=== PATIENT | female | born 2005 | race Caucasian/White ===

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

== ENCOUNTER 2025-01-24 05:07 | Inpatient (IN) | payer OTHER, SELFPAY ==
[2025-01-24] VITALS (53 sets, daily range): BP systolic 97–171; BP diastolic 52–98; PULSE 73–148; TEMP 36.6–36.9
--- OUTSIDE RECORDS SUMMARY | 2025-01-24 05:16 | XMS_ITS | CCD ---
Author Organization [facility] Care Team Providers Care Janitorial Maintenance Worker Name Role Phone MARKER, DR DISLA Attending Unavailable MARKER, DR DISLA Consulting Unavailable MARKER, DR DISLA Admitting Unavailable EHSANANNABELLA Consulting Unavailable Unavailable Primary Care Provider Unavailabl e Miko, Lolita Attending Unavailable Miko, Lolita Admitting Unavailable MIKO, LOLITA Attending Unavailable YASMIN, MARY Attending Unavailable MIKO, LOLITA Attending Unavailable YASMIN, MARY Attending Unavailable MIKO, LOLITA Attending Unavailable MIKO, LOLITA Attending Unavailable MIKO, LOLITA Attending Unavailable YASMIN, MARY Attending Unavailable AMADEO, LAURIE Attending Unavailable AMADEO, LAURIE Attending Unavailable MIKO, LOLITA Attending Unavailable MIKO, LOLITA Attending Unavailable Problems Active Problems Problem Classification Problem Date Documented Da te Episodic/Chronic E Codes: Other specified and classifiable (1 source) Caught, crushed, jammed, or pinched between moving objects, initial encounter; Translations: [CAUGHT CRUSH/PINCH BTWN MOV OBJ INT] Onset: 02-05-2021 Episodic Menstrual disorders (1 source) Missed period; Translations: [Irregular menstruation, unspecified] 07-01-2024 Chronic Other complications of (2 sources) Excessive growth affecting management of mother; Translations: [Maternal care for excessive growth, unspecified trimester, not applicable or unspecified] 12-07-2024 Episodic Other connective tissue disease (3 sources) Pain in right forearm; Translations: [PAIN IN RIGHT FOREARM] Onset: 01-31-2021 Episodic Other and delivery including normal (20 sources) ; Translations: [Encounter for supervision of normal , unspecified, unspecified trimester] Onset: 08-29-2024 07-01-2024 Episodic Residual codes; unclassified (1 source) Gestation period, 10 weeks; Translations: [10 weeks gestation of ] 07-01-2024 Episodic Residual codes; unclassified (2 sources) Gestation period, 14 weeks; Translations: [14 weeks gestation of ] 08-01-2024 Episodic Residual codes; unclassified (2 sources) Gestation period, 22 weeks; Translations: [22 weeks gestation of ] 09-27-2024 Episodic Residual codes; unclassified (2 sources) Gestation period, 26 weeks; Translations: [26 weeks gestation of ] 10-25-2024 Episodic Residual codes; unclassified (2 sources) Gestation period, 28 weeks; Translations: [28 weeks gestation of ] 11-08-2024 Episodic Residual codes; unclassified (2 sources) Gestation period, 32 weeks; Translations: [32 weeks gestation of ] 12-07-2024 Episodic Residual codes; unclassified (4 sources) Gestation period, 35 weeks; Translations: [35 weeks gestation of ] 12-21-2024 Episodic Residual codes; unclassified (2 sources) Gestation period, 36 weeks; Translations: [36 weeks gestation of ] 01-04-2025 Episodic Residual codes; unclassified (2 sources) Gestation period, 37 weeks; Translations: [37 weeks gestation of ] 01-11-2025 Episodic Residual codes; unclassified (2 sources) Gestation period, 38 weeks; Translations: [38 weeks gestation of ] 01-17-2025 Episodic Superficial injury; contusion (2 sources) Contusion of right hand, initial encounter; Translations: [Contusion of right wrist, initial encounter] Onset: 02-05-2021 Episodic Unclassified (20 sources) OB Reminders Onset: 07-01-2024 07-01-2024 Viral infection (1 source) Disease caused by 2019-nCoV; Translations: [COVID-19] 04-26-2024 Episodic Past or Other Problems Problem Classification Problem Date Documented Da te Episodic/Chronic Other screening for suspected conditions (not mental disorders or infectious disease) (20 sources) Patient encounter status; Translations: [Encounter for other specified screening] Onset: 08-29-2024 08-29-2024 Episodic Residual codes; unclassified (20 sources) Gestation period, 18 weeks; Translations: [18 weeks gestation of ] Onset: 08-29-2024 08-29-2024 Episodic Results Test Name Value Interpretation Reference Range Facility Urinalysis macro (dipstick) panel (U)on 01-17-2025 Bilirubin, UA Negative Negative - 4(70) +++ mg/dL [facility] Blood, UA Positive Negative - 50 Shimon/mcL [facility] Comment on above: trace-intact Clarity, UA Clear [facility] Color, UA Yellow [facility] Glucose, UA Negative Negative - 2000(110) ++++ mg/dL [facility] Interpretation and review of laboratory results Abnormal [facility] Ketones, UA Negative Negative - 160(16) ++++ mg/dL [facility] Leukocytes, UA Moderate Negative - 500+++ Mari/mcL [facility] Nitrite, UA Negative Negative - Positive [facility] pH, UA 6.5 5 - 9 [facility] e Protein, UA Negative Negative - 2000(20) ++++ mg/dL [facility] Spec Grav, UA 1.02 1 - 1.03 [facility] Urobilinogen, UA 0.2 0.2 - 12 mg/dL [facility] US OB FOLLOW UP TRANSABDOMIN AL APPROACHon 01-04-2025 US OB FOLLOW UP TRANSABDOMINAL APPROACH EXAM: US OB FOLLOW UP TRANSABDOMINAL APPROACH HISTORY: Large for gestational age. JEANNIE 01/27/2025. COMPARISON: U/S OB 09/13/2024. TECHNIQUE: Two-dimensional transabdominal grayscale ultrasound imaging of the pelvis was performed. FINDINGS: Gestation: Single Presentation: Cephalic Cardiac Activity: 131 beats per minute Placental Location: Anterior with no sonographic abnormalities identified. Distance from Placental Tip to Cervix: Not visualized Cervical Length: Obscured by overlying head Amniotic Fluid MVP: 6.2 cm MEASUREMENTS: BPD: 9.0 cm EGA: 36 weeks 3 days HC: 33.4 cm EGA: 38 weeks 1 days AC: 33.8 cm EGA: 37 weeks 5 days FL: 7.1 cm EGA: 36 weeks 1 days HC/AC Ratio: 0.99 (0.92-1.05) Gestational age by today's ultrasound is 37 weeks 1 days (+/- 18 days gestation). Estimated Weight: 3154 grams, +/- 473 grams ( 6 lb 15 oz). Weight Percentile for gestational age: 69 % IMPRESSION: 1. Single, live intrauterine gestation 36 weeks, 5 days by LMP. Today's ultrasound measurements correlate with a gestational age of 37 weeks 1 days. Interpreted by: Electronically signed by FERNANDO ORDONEZ II, MD, PHD at 08-Jan-2025 08:52:54 PM [facility] Normal Not Available Comment on above: Order Comment: US OB SCAN FOR GROWTH Estimated Date of Delivery: 01/27/25 Gestational Age as of 12/07/2024: 32w5d Urinalysis macro (dipstick) panel (U)on 01-04-2025 Bilirubin, UA Negative Negative - 4(70) +++ mg/dL [facility] Blood, UA Positive Negative - 50 Shimon/mcL [facility] Comment on above: trace-intact Clarity, UA Clear [facility] Color, UA Yellow [facility] Glucose, UA Negative Negative - 1999(110) ++++ mg/dL [facility] Interpretation and review of laboratory results Abnormal [facility] Ketones, UA Negative Negative - 160(16) ++++ mg/dL [facility] Leukocytes, UA Positive Negative - 500+++ Mari/mcL [facility] Comment on above: large Nitrite, UA Negative Negative - Positive [facility] pH, UA 6.5 5 - 9 [facility] Protein, UA Trace Negative - 1999(20) ++++ mg/dL [facility] Spec Grav, UA 1.02 1 - 1.03 [facility] Urobilinogen, UA 0.2 0.2 - 12 mg/dL [facility] STREP GP B CULTURE+RFLXon STREP GP B CULTURE+RFLX SEE SCANNED REPORT [facility] Urinalysis macro (dipstick) panel (U)on 12-28-2024 Bilirubin, UA Negative Negative - 4(70) +++ mg/dL [facility] Blood, UA Positive Negative - 50 Shimon/mcL [facility] Healthcare Comment on above: Trace-lysed Clarity, UA Clear [facility] Color, UA Yellow [facility] Glucose, UA Negative Negative - 1999(110) ++++ mg/dL [facility] Interpretation and review of laboratory results Abnormal [facility] Ketones, UA Negative Negative - 160(16) ++++ mg/dL [facility] Leukocytes, UA Trace Negative - 500+++ Mari/mcL [facility] Healthcare Nitrite, UA Negative Negative - Positive [facility] pH, UA 5.5 5 - 9 [facility] Protein, UA Positive Negative - 1999(20) ++++ mg/dL [facility] Comment on above: 30mg/dL Spec Grav, UA 1.03 1 - 1.03 [facility] care Urobilinogen, UA 0.2 0.2 - 12 mg/dL [facility] Urinalysis macro (dipstick) panel (U)on 12-21-2024 Bilirubin, UA Negative Negative - 4(70) +++ mg/dL [facility] Blood, UA Positive Negative - 50 Shimon/mcL [facility] Clarity, UA Clear [facility] Color, UA Yellow [facility] Glucose, UA Negative Negative - 1999(110) ++++ mg/dL [facility] Interpretation and review of laboratory results Abnormal [facility] Ketones, UA Negative Negative - 160(16) ++++ mg/dL [facility] Leukocytes, UA Positive Negative - 500+++ Mari/mcL [facility] Nitrite, UA Negative Negative - Positive [facility] pH, UA 6.5 5 - 9 [facility] Protein, UA Trace Negative - 1999(20) ++++ mg/dL [facility] Spec Grav, UA 1.02 1 - 1.03 [facility] Urobilinogen, UA 0.2 0.2 - 12 mg/dL [facility] OB GROWTHon 12-07-[address] [address] Ultrasound Report Signed Patient: GOOD FREEMAN MR#: [id number] : 2005 Acct:[id number] Age/Sex: 19 / F ADM Date: 12/07/24 Loc: US Attending Dr: Mary Hoffman Ordering Physician: Mary Hoffman Date of Service: 12/07/24 Procedure(s): US OB growth Accession Number(s): [id number] cc: Mary Hoffman; Physician,Non-Staff M.DLisset The [address] [address] Patient Name: GOOD FREEMAN MRN: [facility]:[id number] date: 2005 Sex: F Assigned Patient Location: US Current Patient Location: Accession/Order Number: [id number] Exam Date: 12/07/2024 11:52 Report Date: 12/07/2024 11:57 At the request of: MARY HOFFMAN Procedure: US OB growth OB ULTRASOUND GROWTH COMPARISON: 2024 CLINICAL DATA: size and consistent with dates There is a single live intrauterine gestation in cephalic presentation. There is cardiac and somatic activity with heart rate of 129 beats per minutes. The amniotic fluid index measures 19.2 cm which is an upper normal range. The placenta is anterior. The following measurements were obtained: Biparietal diameter 8.1 cm 32 weeks 3 days 33% Head circumference 30.0 cm 33 weeks 1 day 23% Abdominal circumference 29.5 cm 32 weeks 4 days 44% Femur length 5.9 cm 30 weeks 5 days 4% The composite ultrasound age based these measurements is 32 weeks 2 days +/- 2 weeks 2 days. This correlates with dates based on the prior. The estimated weight is 4 lbs. 3 oz. +/- 10 ounces. US/US OB growth IMPRESSION: SINGLE LIVE INTRAUTERINE GESTATION WITH ULTRASOUND AGE OF 32 WEEKS 2 DAYS. APPROPRIATE INTERVAL GROWTH. Impression dictated by: Kacey Jeff M.D.12/07/2024 11:57 AM Dictation Location: [place] [address] Electronically authenticated by: [id number] Y Date: 12/07/2024 11:57 Dictated By: Kacey Jeff M.D. Signed By: 12/07/24 1159 DD/ 1157 TD/TT: Supervisor Hospitality House: [facility] Radiology, Radiologist, MD - 12/07/2024 [place] [address] Ultrasound Report Signed Patient: GOOD FREEMAN MR#: [id number] : 2005 Acct:[id number] Age/Sex: 19 / F ADM Date: 12/07/24 Loc: US Attending Dr: Mary Hoffman Ordering Physician: Mary Hoffman Date of Service: 12/07/24 Procedure(s): US OB growth Accession Number(s): [id number] cc: Mary Hoffman; Physician,Non-Staff Negar The [place] [id number] Patient Name: GOOD FREEMAN MRN: [id number] date: 2005 Sex: F Assigned Patient Location: US Current Patient Location: US Accession/Order Number: [id number] Exam Date: 12/07/2024 11:52 Report Date: 12/07/2024 11:57 At the request of: MARY HOFFMAN Procedure: US OB growth OB ULTRASOUND GROWTH COMPARISON: 2024 CLINICAL DATA: size and consistent with dates There is a single live intrauterine gestation in cephalic presentation. There is cardiac and somatic activity with heart rate of 129 beats per minutes. The amniotic fluid index measures 19.2 cm which is an upper normal range. The placenta is anterior. The following measurements were obtained: Biparietal diameter 8.1 cm 32 weeks 3 days 33% Head circumference 30.0 cm 33 weeks 1 day 23% Abdominal circumference 29.5 cm 32 weeks 4 days 44% Femur length 5.9 cm 30 weeks 5 days 4% The composite ultrasound age based these measurements is 32 weeks 2 days +/- 2 weeks 2 days. This correlates with dates based on the prior. The estimated weight is 4 lbs. 3 oz. +/- 10 ounces. US/US OB growth IMPRESSION: SINGLE LIVE INTRAUTERINE GESTATION WITH ULTRASOUND AGE OF 32 WEEKS 2 DAYS. APPROPRIATE INTERVAL GROWTH. Impression dictated by: Kacey Jeff M.D.12/07/2024 11:57 AM Dictation Location: [place] [address] Electronically authenticated by: [id number] Y Date: 12/07/2024 11:57 Dictated By: Kacey Jeff M.D. Signed By: 12/07/24 1159 DD/ 1157 TD/TT: Supervisor Hospitality House: [facility] Radiology Study observation (narrative) [facility] US OB GROWTHOrdered By: Jose Roberto ologvenita Radiology on 12-07-2024 [facility] [employer] Work Phone: Urinalysis macro (dipstick) panel (U)on 12-07-2024 Bilirubin, UA Negative Negative - 4(70) +++ mg/dL [facility] Blood, UA Positive Negative - 50 Shimon/mcL [facility] Comment on above: trace-intact Clarity, UA Clear [facility] Color, UA Yellow [facility] Glucose, UA Negative Negative - 1999(110) ++++ mg/dL [facility] Interpretation and review of laboratory results Abnormal [facility] Ketones, UA Negative Negative - 160(16) ++++ mg/dL [facility] Leukocytes, UA Positive Negative - 500+++ Mari/mcL [facility] Comment on above: small Nitrite, UA Negative Negative - Positive [facility] pH, UA 6.5 5 - 9 [facility] Protein, UA Trace Negative - 1999(20) ++++ mg/dL [facility] Spec Grav, UA 1.025 1 - 1.03 [facility] care Urobilinogen, UA 0.2 0.2 - 12 mg/dL [facility] Urinalysis macro (dipstick) panel (U)on 10-25-2024 Bilirubin, UA Negative Negative - 4(70) +++ mg/dL [facility] Blood, UA Negative Negative - 50 Shimon/mcL [facility] Clarity, UA Clear [facility] Color, UA Yellow [facility] Glucose, UA Negative Negative - 1999(110) ++++ mg/dL [facility] Interpretation and review of laboratory results Abnormal [facility] Ketones, UA Negative Negative - 160(16) ++++ mg/dL [facility] Leukocytes, UA Trace Negative - 500+++ Mari/mcL [facility] Nitrite, UA Negative Negative - Positive [facility] pH, UA 7 5 - 9 [facility] Protein, UA Negative Negative - 1999(20) ++++ mg/dL [facility] Spec Grav, UA 1.025 1 - 1.03 [facility] Urobilinogen, UA 0.2 0.2 - 12 mg/dL [facility] AFP, SERUM, OPEN SPINA BIFID Aon 10-22-2024 AFP MOM 2.29 . [facility] AFP VALUE 105.1 ng/mL . [facility] re COMMENT: Comment . [facility] Comment on above: Nallely Dutta , Ph.D., [facility] Director References: Available Upon Request. Multiples Of Median Cutoffs For AFP Elevations Zamora 2.5 Black 2.8 IDD 2.0 Twins 4.5 Abbreviation Definitions IDD - Insulin Dep Diabetes OSBR - Open Spina Bifida Risk For further inquiries contact [facility] at [phone]. This test was developed and its performance characteristics determined by [employer]. It has not been cleared or approved by the Food and Drug Administration. Performed at: [facility] [address] [place], [place] [id number] Mutual Fund Analyst: Adriana Edwards [facility]ly [facility], Phone: [phone] GEST. AGE ON COLLECTION DATE 18.4 . weeks [facility] GESTAT. AGE BASED ON LMP . [facility] Comment on above: Recalculations are n ot recommended when gestational dating by LMP and ultrasound are within 10 days. INSULIN DEP DIABETES No . [facility] INTERPRETATION Comment . [facility] hcare Comment on above: Interpretation: Scre en Negative [...] Customer Services to discuss available options. [employer] recommends amniocentesis be offered to women age 35 and older. [age] [facility] MULTIPLE GESTATION No . [facility] OSBR RISK 1 [place] 435 . [facility] . [facility] [employer] RESULTS Report . [facility] [employer] TEST RESULTS: Negative . [facility] care WEIGHT 147 . lbs [facility] N N LMP [id number] 3 18 N 1 Y 147 N N N N N Other Race [facility] ALL CBC WITH AUTO DIFFon BASOPHILS ABSOLUTE AUTO 0 [facility] Basophils/100 WBC (Bld) 0.2 % 0.2 - 2.0 % [facility] Eosinophils/100 WBC (Bld) 0.6 % Low 0.9 - 7.0 % [facility] Erythrocyte distribution width (RBC) [Ratio] 13.4 % 11.0 - 15.0 % [facility] Hematocrit (Bld) [Volume fraction] 37.1 % 36.0 - 48.0 % [facility] Hemoglobin (Bld) [Mass/Vol] 12.7 g/dL 12.0 - 16.0 g/dL [facility] IMMATURE GRANULOCYTES ABS AUTO 0.13 High [facility] Immature granulocytes/100 WBC (Bld) 1.6 % High 0.0 - 0.5 % [facility] Interpretation and review of laboratory results Abnormal [facility] LYMPHOCYTES ABSOLUTE AUTO 2.5 [facility] Lymphocytes/100 WBC (Bld) 29.5 % 20.5 - 60.0 % [facility] MCH (RBC) [Entitic mass] 31.9 pg 26.7 - 34.0 pg [facility] MCHC (RBC) [Mass/Vol] 34.2 g/dL 29.9 - 35.2 g/dL [facility] MCV (RBC) [Entitic vol] 93.2 fL 81.0 - 99.0 fL [facility] MONOCYTES ABSOLUTE AUTO 0.5 [facility] Monocytes/100 WBC (Bld) 5.9 % 1.7 - 12.0 % [facility] NEUTROPHILS ABSOLUTE AUTO 5.2 [facility] Neutrophils/100 WBC (Bld) 62.2 % 43.0 - 75.0 % [facility] Platelet mean volume (Bld) [Entitic vol] 10 fL 9.5 - 13.5 fL [facility] are [facility] EO # 0.1 [facility] e TB PLT 203 [facility] e TB RBC 3.98 Low [facility] WBC 8.3 [facility] e Urinalysis macro (dipstick) panel (U)on 09-27-2024 Bilirubin, UA Negative Negative - 4(70) +++ mg/dL [facility] Blood, UA Negative Negative - 50 Shimon/mcL [facility] Clarity, UA Clear [facility] re Color, UA Yellow [facility] e Glucose, UA Negative Negative - 2000(110) ++++ mg/dL [facility] Interpretation and review of laboratory results Abnormal [facility] Ketones, UA Negative Negative - 160(16) ++++ mg/dL [facility] Leukocytes, UA Trace Negative - 500+++ Mari/mcL [facility] Nitrite, UA Negative Negative - Positive [facility] pH, UA 6 5 - 9 [facility] Protein, UA Negative Negative - 2000(20) ++++ mg/dL [facility] Spec Grav, UA 1.025 1 - 1.03 [facility] Urobilinogen, UA 0.2 0.2 - 12 mg/dL [facility] US OB 14+ WEEKS ANATOMY [...] RECURRENT VAGINITIS (HTRX)on 09-01-2024 [facility]AE 0 [facility] ATOPOBIUM VAGINAE Not detected [facility] Healthcare BVAB 2,3 (BACTERIAL VAGINOSIS ASSOCIATED BACTERIA 2, 3); MOBILUNCUS SPP 0 [facility] BVAB 2,3 (BACTERIAL VAGINOSIS ASSOCIATED BACTERIA 2, 3); MOBILUNCUS SPP Not detected [facility] RICK ALBICANS, PARAPSILOSIS, TROPICALIS 0 [facility] RICK ALBICANS, PARAPSILOSIS, TROPICALIS Not detected [facility] Healthcare RICK GLABRATA 0 [facility] Hea lthcare RICK GLABRATA Not detected [facility] RICK KRUSEI 0 [facility] RICK KRUSEI Not detected [facility] CHLAMYDIA TRACHOMATIS 0 [facility] CHLAMYDIA TRACHOMATIS Not detected [facility] GARDNERELLA VAGINALIS 0 [facility] GARDNERELLA VAGINALIS Not detected [facility] MEGASPHAERA (TYPES 1, 2) 0 [facility] MEGASPHAERA (TYPES 1, 2) Not detected [facility] MYCOPLASMA GENITALIUM 0 [facility] MYCOPLASMA GENITALIUM Not detected [facility] NEISSERIA GONORRHOEAE 0 [facility] NEISSERIA GONORRHOEAE Not detected [facility] TRICHOMONAS VAGINALIS 0 [facility] TRICHOMONAS VAGINALIS Not detected [facility] ALL CBC WITH AUTO DIFFon BASOPHILS ABSOLUTE AUTO 0 [facility] Basophils/100 WBC (Bld) 0.4 % 0.2 - 2.0 % [facility] Eosinophils/100 WBC (Bld) 0.9 % 0.9 - 7.0 % [facility] Erythrocyte distribution width (RBC) [Ratio] 13.1 % 11.0 - 15.0 % [facility] Hematocrit (Bld) [Volume fraction] 39.3 % 36.0 - 48.0 % [facility] Hemoglobin (Bld) [Mass/Vol] 13.3 g/dL 12.0 - 16.0 g/dL [facility] IMMATURE GRANULOCYTES ABS AUTO 0.1 High [facility] Immature granulocytes/100 WBC (Bld) 1.2 % High 0.0 - 0.5 % [facility] Interpretation and review of laboratory results Abnormal [facility] LYMPHOCYTES ABSOLUTE AUTO 2.6 [facility] Lymphocytes/100 WBC (Bld) 31.8 % 20.5 - 60.0 % [facility] MCH (RBC) [Entitic mass] 30.6 pg 26.7 - 34.0 pg [facility] MCHC (RBC) [Mass/Vol] 33.8 g/dL 29.9 - 35.2 g/dL [facility] MCV (RBC) [Entitic vol] 90.6 fL 81.0 - 99.0 fL [facility] MONOCYTES ABSOLUTE AUTO 0.4 [facility] Monocytes/100 WBC (Bld) 5.5 % 1.7 - 12.0 % [facility] NEUTROPHILS ABSOLUTE AUTO 4.8 [facility] Neutrophils/100 WBC (Bld) 60.2 % 43.0 - 75.0 % [facility] Platelet mean volume (Bld) [Entitic vol] [...] (U) No Growth 2 Days PERFORMED BY: [place] [address] PATHOLOGIST [employer] JOHNATHAN AGARWAL M.D. Normal [facility] Comment on above: Performed By: #### C UU #### [address] Urinalysis macro (dipstick) panel (U)on 08-01-2024 Bilirubin, UA Negative Negative - 4(70) +++ mg/dL [facility] Blood, UA Negative Negative - 50 Shimon/mcL [facility] Clarity, UA Clear [facility] Color, UA Yellow [facility] Glucose, UA Negative Negative - 2000(110) ++++ mg/dL [facility] Interpretation and review of laboratory results Normal [facility] Ketones, UA Negative Negative - 160(16) ++++ mg/dL [facility] Leukocytes, UA Negative Negative - 500+++ Mari/mcL [facility] Nitrite, UA Negative Negative - Positive [facility] pH, UA 6.5 5 - 9 [facility] Protein, UA Negative Negative - 1999(20) ++++ mg/dL [facility] Spec Grav, UA 1.025 1 - 1.03 [facility] Urobilinogen, UA 0.2 0.2 - 12 mg/dL [facility] HCG ( test) Ql (U)o n 07-01-2024 Interpretation and review of laboratory results Abnormal [facility] Preg Test, Ur Positive [facility] Urinalysis macro (dipstick) panel (U)on 07-01-2024 Bilirubin, UA Negative Negative - 4(70) +++ mg/dL [facility] Blood, UA Negative Negative - 50 Shimon/mcL [facility] Clarity, UA Clear [facility] re Color, UA Yellow [facility] e Glucose, UA Negative Negative - 1999(110) ++++ mg/dL [facility] Interpretation and review of laboratory results Normal [facility] Ketones, UA Negative Negative - 160(16) ++++ mg/dL [facility] Leukocytes, UA Negative Negative - 500+++ Mari/mcL [facility] Nitrite, UA Negative Negative - Positive [facility] pH, UA 6 5 - 9 [facility] Protein, UA Negative Negative - 1999(20) ++++ mg/dL [facility] Spec Grav, UA 1.025 1 - 1.03 [facility] Urobilinogen, UA 0.2 0.2 - 12 mg/dL [facility] XR WRIST RT [...] by: ANNABELLA MOSER Date: 2021-01-31 20:05 Normal [facility] Vital Signs Date Time Vital Sign Value Performing Clinician Facility 01-17-2025 11:51-0400 Body weight 94.26 kg Lolita Miko DO Work Phone: [facility] 01-17-2025 11:51-0400 Diastolic blood pressure 82 mm[Hg] Lolita Miko DO Work Phone: [facility] 01-17-2025 11:51-0400 Systolic blood pressure 130 mm[Hg] Lolita Miko DO Work Phone: [facility] 01-11-2025 11:30-0400 Body weight 92.08 kg Lolita Miko DO Work Phone: [facility] 01-11-2025 11:30-0400 Diastolic blood pressure 76 mm[Hg] Lolita Miko DO Work Phone: [facility] 01-11-2025 11:30-0400 Systolic blood pressure 102 mm[Hg] Lolita Miko DO Work Phone: [facility] 01-04-2025 09:02-0400 Body weight 91.81 kg Laurie Amadeo [employer] Work Phone: [facility] 01-04-2025 09:02-0400 Diastolic blood pressure 70 mm[Hg] Laurie Amadeo [employer] Work Phone: [facility] 01-04-2025 09:02-0400 Systolic blood pressure 110 mm[Hg] Laurie Amadeo [employer] Work Phone: [facility] 12-28-2024 09:03-0400 Body weight 89.81 kg Laurie Amadeo [employer] Work Phone: [facility] 12-28-2024 09:03-0400 Diastolic blood pressure 82 mm[Hg] Laurie Amadeo [employer] Work Phone: [facility] 12-28-2024 09:03-0400 Systolic blood pressure 124 mm[Hg] Laurie Amadeo [employer] Work Phone: [facility] 12-21-2024 11:05-0400 Body weight 53.52 kg Lolita Miko DO Work Phone: [facility] 12-21-2024 11:05-0400 Diastolic blood pressure 74 mm[Hg] Lolita Miko DO Work Phone: [facility] 12-21-2024 11:05-0400 Systolic blood pressure 118 mm[Hg] Lolita Miko DO Work Phone: [facility] 12-07-2024 11:37-0400 Body weight 86.36 kg Lolita Miko DO Work Phone: [facility] 12-07-2024 11:37-0400 Diastolic blood pressure 72 mm[Hg] Lolita Miko DO Work Phone: [facility] 12-07-2024 11:37-0400 Systolic blood pressure 110 mm[Hg] Lolita Miko DO Work Phone: [facility] 11-08-2024 11:51-0500 Body weight 81.7 kg Lolita Miko DO Work Phone: [facility] 11-08-2024 11:51-0500 Diastolic blood pressure 74 mm[Hg] Lolita Miko DO Work Phone: [facility] 11-08-2024 11:51-0500 Systolic blood pressure 118 mm[Hg] Lolita Miko DO Work Phone: [facility] 10-25-2024 11:59-0500 Body weight 79.38 kg Mary BRIONES Work Phone: [facility] 10-25-2024 11:59-0500 Diastolic blood pressure 70 mm[Hg] Mary BRIONES Work Phone: [facility] 10-25-2024 11:59-0500 Systolic blood pressure 112 mm[Hg] Mary BRIONES Work Phone: [facility] 09-27-2024 09:17-0500 Body weight 73.48 kg Lolita Miko DO Work Phone: [facility] 09-27-2024 09:17-0500 Diastolic blood pressure 62 mm[Hg] Lolita Miko DO Work Phone: [facility] 09-27-2024 09:17-0500 Systolic blood pressure 112 mm[Hg] Lolita Miko DO Work Phone: [facility] 08-29-2024 11:11-0500 Body weight 66.45 kg Mary Yasmin BRIONES Work Phone: [facility] 08-29-2024 11:11-0500 Diastolic blood pressure 62 mm[Hg] Mray BRIONES Work Phone: [facility] 08-29-2024 11:11-0500 Systolic blood pressure 106 mm[Hg] Mary Hoffman PA Work Phone: [facility] 08-01-2024 10:06-0500 Body weight 62.05 kg Lolita Miko DO Work Phone: [facility] 08-01-2024 10:06-0500 Diastolic blood pressure 62 mm[Hg] Lolita Miko DO Work Phone: [facility] 08-01-2024 10:06-0500 Systolic blood pressure 110 mm[Hg] Lolita Miko DO Work Phone: [facility] 07-01-2024 11:05-0400 Body weight 56.25 kg [facility] Nurse [facility] 04-26-2024 15:52-0400 Body height 162.56 cm [facility] 04-26-2024 15:52-0400 Body mass index (BMI) [Percentile] Per age and sex 38.1 % [facility] 04-26-2024 15:52-0400 Body mass index (BMI) [Ratio] 20.6 kg/m2 [facility] 04-26-2024 15:52-0400 Body temperature 98.9 [degF] [facility] 04-26-2024 15:52-0400 Body weight 54.6 kg [facility] 04-26-2024 15:52-0400 Diastolic blood pressure 85 mm[Hg] [facility] 04-26-2024 15:52-0400 Heart rate 77 /min [facility] 04-26-2024 15:52-0400 Respiratory rate 18 /min [facility] 04-26-2024 15:52-0400 SaO2% (BldA) [Mass fraction] 99 % [facility] 04-26-2024 15:52-0400 Systolic blood pressure 122 mm[Hg] [facility] Encounters Encounter Date Encounter Type Care Provider Facility Start: 01-17-2025 End: 01-17-2025 Bamboo flowsheet Lolita Miko DO Work Phone: [facility] Start: 01-17-2025 End: 01-17-2025 Bamboo flowsheet Lolita Miko DO Work Phone: [facility] Start: 01-17-2025 End: 01-17-2025 ambulatory LOLITA MIKO Not Available Start: 01-17-2025 End: 01-17-2025 flow sheet Lolita Miko DO Work Phone: [facility] Comment on above: 38 weeks gestation o f ; Third trimester Start: 01-11-2025 End: 01-11-2025 Bamboo flowsheet Lolita Miko DO Work Phone: [facility] Start: 01-11-2025 End: 01-11-2025 Bamboo flowsheet Loliat Miko DO Work Phone: [facility] Start: 01-11-2025 End: 01-11-2025 ambulatory LOLITA MIKO Not Available Start: 01-11-2025 End: 01-11-2025 flow sheet Lolita Miko DO Work Phone: [facility] Comment on above: Third trimester preg amando; 37 weeks gestation of Start: 01-04-2025 End: 01-04-2025 flow sheet Laurie Amadeo [employer] Work Phone: [facility] Comment on above: Third trimester preg amando; 36 weeks gestation of Start: 01-04-2025 End: 01-04-2025 ambulatory LAURIE AMADEO Not Available Start: 12-28-2024 End: 12-28-2024 Bamboo flowsheet Laurie Childs [employer] Work Phone: [facility] Start: 12-28-2024 End: 01-03-2025 Bamboo flowsheet Laurie Childs [employer] Work Phone: [facility] Start: 12-28-2024 End: 01-03-2025 Clinisync Result Encounter Laurie Childs [employer] Work Phone: [facility] Unsolicited Start: 12-28-2024 End: 12-28-2024 ambulatory LAURIE CHILDS Not Available Start: 12-28-2024 End: 12-28-2024 flow sheet Laurie Childs [employer] Work Phone: [facility] Comment on above: Third trimester preg amando; 35 weeks gestation of Start: 12-21-2024 End: 12-21-2024 Bamboo flowsheet Lolita Miko DO Work Phone: [facility] Start: 12-21-2024 End: 12-21-2024 Bamboo flowsheet Lolita Miko DO Work Phone: [facility] Start: 12-21-2024 End: 12-21-2024 flow sheet Lolita Miko DO Work Phone: [facility] Comment on above: Third trimester preg amando; 35 weeks gestation of Start: 12-21-2024 End: 12-21-2024 ambulatory LOLITA MIKO Not Available Start: 12-07-2024 End: 12-07-2024 Bamboo flowsheet Lolita Miko DO Work Phone: [facility] Start: 12-07-2024 End: 12-07-2024 Bamboo flowsheet Lolita Miko DO Work Phone: [facility] Start: 12-07-2024 End: 12-07-2024 Clinisync Result Encounter Mary BRIONES Work Phone: [facility] Unsolicited Start: 12-07-2024 End: 12-07-2024 ambulatory LOLITA MIKO Not Available Start: 12-07-2024 End: 12-07-2024 flow sheet Lolita Miko DO Work Phone: [facility] Comment on above: 32 weeks gestation o f ; Third trimester ; Excessive growth affecting management of , antepartum, single or unspecified fetus Start: 11-22-2024 End: 11-22-2024 ambulatory MARY HOFFMAN Not Available Start: 11-08-2024 End: 11-08-2024 Bamboo flowsheet Lolita Miko DO Work Phone: [facility] Start: 11-08-2024 End: 11-08-2024 Bamboo flowsheet Lolita Miko DO Work Phone: [facility] Start: 11-08-2024 End: 11-08-2024 ambulatory [...] Start: 08-29-2024 End: 08-29-2024 ambulatory Lolita Miko Facility:[facility] Start: 08-01-2024 End: 08-01-2024 Bamboo flowsheet [...] GA: 10w0d Start: 04-26-2024 End: 04-26-2024 ambulatory [facility] Work Phone: Start: 04-26-2024 End: 04-26-2024 Patient encounter procedure [facility] Work Phone: Start: 01-31-2021 End: 01-31-[address] NIGHAT CASILLAS Facility:[facility]1 Procedures Date Procedure Procedure Detail Performing Clinician Start: 01-17-2025 Urnls dip stick/tabl et rgnt non-auto w/o micrscp Lolita Miko DO Work Phone: Start: 01-04-2025 Urnls dip stick/tabl et rgnt non-auto w/o micrscp Laurie Childs NP Work Phone: Start: 12-28-2024 Urnls dip stick/tabl et rgnt non-auto w/o micrscp Lolita Miko DO Work Phone: Start: 12-28-2024 STREP GP B CULTURE+RFLX Laurie Childs [employer] Work Phone: Start: 12-21-2024 Urnls dip stick/tabl et rgnt non-auto w/o micrscp Lolita Miko DO Work Phone: Start: 12-07-2024 US OB GROWTH Mary BRIONES Work Phone: Start: 12-07-2024 Urnls dip stick/tabl et rgnt non-auto w/o micrscp Lolita Miko DO Work Phone: Start: 10-25-2024 Urnls dip stick/tabl et rgnt [...] Treatment Date Care Activity Detail Author Start: 01-17-2025 End: 01-17-2025 Patient encounter procedure 01/17/2025 11:40 AM EDT Routine [facility] [address] [place] [id number] Lolita Crouch DO [address] [place], [place] [id number] [facility] Start: 01-04-2025 End: 01-04-2025 Patient encounter procedure 01/04/2025 9:10 AM EDT Routine [facility] [address] [place] [phone] Laurie Childs, [employer] [address] [place] [phone] [facility] Start: 01-04-2025 End: 01-04-2025 Professional / ancillary services management 01/04/2025 8:30 AM EDT Ancillary Procedure [facility] [address] [place] [address] [facility] Start: 12-28-2024 End: 12-28-2025 CULTURE, GROUP B STREP WITH SUSCEPTIBLITY CULTURE, GROUP B STREP WITH SUSCEPTIBLITY Lab Routine Third trimester Expected: 12/28/2024, Expires: 12/28/2025 [facility] Work Phone: Comment on above: Expected: 12/28/2024 , Expires: 12/28/2025 Start: 12-28-2024 End: 12-28-2024 Patient encounter procedure 12/28/2024 8:50 AM EDT Routine [facility] [address] [place] [address] Mary Hoffman PA [address] [place], [place] [id number] [facility] Start: 12-21-2024 End: 12-21-2024 Patient encounter procedure [facility] Comment on above: Arrived Start: 12-07-2024 End: 12-07-2025 US for US OB follow up transabdominal approach Imaging Routine Excessive growth affecting management of , antepartum, single or unspecified fetus Expected: 12/07/2024, Expires: 12/07/2025 [facility] Work Phone: Comment on above: Expected: 12/07/2024 , Expires: 12/07/2025 Start: 11-22-2024 End: 11-22-2024 Patient encounter procedure 11/22/2024 11:30 AM EDT Routine [facility] [address] [place] [phone] Mary Hoffman PA [address] [place], [place] [address] [place] [address] [place], [place] [id number] [facility] Start: 10-25-2024 End: 10-25-2024 Patient encounter procedure 10/25/2024 11:30 AM EST Routine [facility] [address] [facility] [place] [phone] Mary Hoffman, PA [address] [place] [address] [place] [address] [facility] Start: 09-27-2024 End: 09-27-2025 CBC panel - Blood by Automated count CBC Lab Routine Diabetes mellitus screening Expected: 09/27/2024 (Approximate), Expires: 09/27/2025 [facility] Work Phone: Comment on above: Expected: 09/27/2024 (Approximate), Expires: 09/27/2025 Start: 09-27-2024 End: 09-27-2025 Measurement of glucose 1 hour after glucose challenge for glucose tolerance test Glucose tolerance, 1 hour Lab Routine Diabetes mellitus screening Expected: 09/27/2024 (Approximate), Expires: 09/27/2025 [facility] Comment on above: Expected: 09/27/2024 (Approximate), Expires: 09/27/2025 Start: 09-27-2024 End: 09-27-2024 Patient encounter procedure 09/27/2024 8:50 AM EST Routine [facility] [address] [place] [phone] Lolita Crouch DO [address] [facility] [place] [address] [facility] Start: 09-13-2024 End: 09-13-2024 Professional / ancillary services management 09/13/2024 11:00 AM EST Ancillary Procedure [facility] [address] [place] [phone] [facility] Start: 08-29-2024 End: 10-30-2024 [...] AM EST Routine [facility] [address] [place] [phone] Mary Hoffman PA [address] [place] [address] [facility] Start: 08-01-2024 End: 08-01-2024 [...] gestational age Expected: 07/01/2024 (Approximate), Expires: 07/01/2025 [facility] Work Phone: Comment on above: Expected: 07/01/2024 (Approximate), Expires: 07/01/2025 Start: 07-01-2024 End: 07-01-2025 Drugs of abuse panel - Urine by Screen method Rapid drug screen, urine Lab Routine , unspecified gestational age Encounter for supervision of normal first in first trimester Expected: 07/01/2024 (Approximate), Expires: 07/01/2025 [facility] Comment on above: Expected: 07/01/2024 (Approximate), Expires: 07/01/2025 Start: 07-01-2024 End: 07-01-2025 US Pelvis transvaginal US OB transvaginal Imaging Routine Missed menses Expected: 07/01/2024 (Approximate), Expires: 07/01/2025 [facility] Comment on above: Expected: 07/01/2024 (Approximate), Expires: 07/01/2025 Bacteria identified in Urine by Culture Urine culture Microbiology Routine Missed menses Ordered: 07/01/2024 [facility] Comment on above: Ordered: 07/01/2024 CBC W Auto Different ial panel - Blood CBC and differential Lab Routine Missed menses , unspecified gestational age Ordered: 07/01/2024 [facility] Comment on above: Ordered: 07/01/2024 CHLAMYDIA TRACHOMATI S (GENITO/STI) CHLAMYDIA TRACHOMATIS (GENITO/STI) Lab Routine 18 weeks gestation of Second trimester Ordered: 08/29/2024 [facility] Comment on above: Ordered: 08/29/2024 Hemoglobin A1c/Hemoglobin.total in Blood Hemoglobin A1c Lab Routine Missed menses , unspecified gestational age Ordered: 07/01/2024 [facility] Comment on above: Ordered: 07/01/2024 Hepatitis B virus surface Ag [Presence] in Serum or Plasma by Immunoassay Hepatitis B surface antigen Lab Routine Missed menses , unspecified gestational age Ordered: 07/01/2024 [facility] Comment on above: Ordered: 07/01/2024 Hepatitis C virus Ab [Presence] in Serum or Plasma by Immunoassay Hepatitis C antibody Lab Routine Missed menses , unspecified gestational age Ordered: 07/01/2024 [facility] Comment on above: Ordered: 07/01/2024 HIV-1/HIV-2 antigen/antibody combination immunoassay HIV-1 and HIV-2 antibodies Lab Routine Missed menses , unspecified gestational age Ordered: 07/01/2024 [facility] Comment on above: Ordered: 07/01/2024 Neisseria gonorrhoea e DNA [Presence] in Unspecified specimen by MIKAYLA with probe detection Neisseria gonorrhea DNA probe, direct Lab Routine 18 weeks gestation of Second trimester Ordered: 08/29/2024 [facility] Comment on above: Ordered: 08/29/2024 Reagin Ab [Presence] in Serum by RPR RPR Lab Routine Missed menses , unspecified gestational age Ordered: 07/01/2024 [facility] Comment on above: Ordered: 07/01/2024 Rubella antibody, IgG Rubella an tibody, IgG Lab Routine Missed menses , unspecified gestational age Ordered: 07/01/2024 [facility] Comment on above: Ordered: 07/01/2024 SURESWAB(R) ADVANCED VAGINITIS PLUS, TMA SURESWAB(R) ADVANCED VAGINITIS PLUS, TMA Pathology and Cytology Routine 18 weeks gestation of Second trimester Ordered: 08/29/2024 [facility] Work Phone: Comment on above: Ordered: 08/29/2024 Payers Date Payer Category Payer Self-pay 2024 Medicaid [id number] 2024 Medicaid [id number] 2022 Private Health Insurance [facility] [id number] 2022 Unknown [id number] 2005 Unknown [id number] 2.16.840.1.236716.3.579.2. 1259 2005 Unknown [id number] 2.16.840.1.981373.3.579.2. 125 2005 Unknown [id number] 2.16.840.1.992161.3.579.2. 125 2005 Unknown [id number] 2.16840.1.949912.3.579.2. 125 2005 Unknown [id number] 2.16.840.1.157248.3.579.2. 1259 2005 Unknown [id number] 2.16.840.1.384035.3.579.2. 125 2005 Unknown [id number] 2.16.840.1.293033.3.579.2. 1259 2005 Unknown [id number] 2.16.840.1.663259.3.579.2. 125 2005 Unknown [id number] 2.16.840.1.163954.3.579.2. 1259 2005 Unknown [id number] 2.16.840.1.967617.3.579.2. 125 2005 Unknown [id number] 2.16.840.1.505611.3.579.2. 1259 2005 Unknown [id number] 2.16.840.1.419127.3.579.2. 125 2005 Unknown [id number] 2.16.840.1.079721.3.579.2. 1259 2005 Unknown [id number] 2.16.840.1.993413.3.579.2. 1259 2005 Unknown [id number] 2.16.840.1.126086.3.579.2. 1259 1980 Unknown [id number] 2.16.840.1.595647.3.579.2. 593 1959 Unknown [id number] Unknown [id number] 2.16.840.1.431413.3.579.2. 531 Social History Date Type Detail Facility Tobacco smoking status CAIS Unknown if ever smoked [facility] Work Phone: Start: 2005 Sex Assigned At Female [facility] Tobacco smoking status CAIS Tobacco smoking consumption unknown [facility] Start: 05-06-2024 [facility] Start: 2005 Sex assigned at Not on file [facility] Gender identity Not on file [facility] are Goals Date Patient Goal Desired Activity /State Personal health goal Clinical Notes 07-01-2024 to 01-17-2025 Kacey Cedillo LPN - 01/17/2025 11:40 AM Alex Cedillo LPN - 01/11/2025 11:00 AM Дмитрий Childs NP - 01/04/2025 9:10 AM Alex Cedillo LPN - 12/28/2024 8:50 AM EDT Note Date & Type Note Facility 01-17-2025 History of Present illness Narrative Reason for [...] Constitutional: Appearance: Normal appearance. She is well-developed. Genitourinary: Vulva normal. Cardiovascular: Rate and Rhythm: Normal rate and [...] nursing note reviewed. Exam conducted with a carpet layer helper present. Vitals: There is no height or weight on file to calculate BMI. BP: 130/82 Patient's last menstrual period was 04/22/2024. ASSESSMENT & PLAN ICD-10-CM 1. 38 weeks gestation of Z3A.38 POCT urinalysis dipstick manually resulted 2. Third trimester Z34.93 POCT urinalysis dipstick manually resulted Return OB: Patient presents today for a routine obstetrics appointment. Patient is currently 38w4d . Patient states she is doing well but has complaints of being tired due to current . Patient has verbalizes frequent movement. labor precautions was discussed/given and patient was instructed to perform kick counts three times a day. Orders Placed This Encounter Procedures POCT urinalysis dipstick manually resulted Follow Up: Patient is to return to office in 1 week for routine OB appointment. Documented by Kacey Cedillo LPN on behalf of: Lolita Crouch DO documented in this encounter [facility] 01-11-2025 History of Present illness Narrative Reason for [...] nursing note reviewed. Exam conducted with a carpet layer helper present. Vitals: There is no height or weight on file to calculate BMI. BP: 102/76 Patient's last menstrual period was 04/22/2024. ASSESSMENT & PLAN ICD-10-CM 1. Third trimester Z34.93 2. 37 weeks gestation of Z3A.37 Return OB: Patient presents today for a routine obstetrics appointment. Patient is currently 37w5d . Patient states she is doing well but has complaints of being tired due to current . Patient has verbalizes frequent movement. labor precautions was discussed/given and patient was instructed to perform kick counts three times a day. No orders of the defined types were placed in this encounter. Follow Up: Patient is to return to office in 1 week for routine OB appointment. Documented by Kacey Cedillo LPN on behalf of: Lolita Crouch DO documented in this encounter [facility] 01-04-2025 History of Present illness Narrative Reason for [...] nursing note reviewed. Exam conducted with a carpet layer helper present. Vitals: There is no height or weight on file to calculate BMI. BP: 110/70 Patient's last menstrual period was 04/22/2024. ASSESSMENT & PLAN ICD-10-CM 1. Third trimester Z34.93 POCT urinalysis dipstick manually resulted 2. 36 weeks gestation of Z3A.36 POCT urinalysis dipstick manually resulted Return OB: Patient presents today for a routine obstetrics appointment. Patient is currently 36w5d . Patient states she is doing well but has complaints of being tired due to current . Patient has verbalizes frequent movement. labor precautions was discussed/given and patient was instructed to perform kick counts three times a day. Orders Placed This Encounter Procedures POCT urinalysis dipstick manually resulted Follow Up: Patient is to return to office in 1 week for routine OB appointment. Documented by Kerry Bradshaw LPN on behalf of: Laurie Childs NP documented in this encounter [facility] 12-28-2024 History of Present illness Narrative Reason for [...] Constitutional: Appearance: Normal appearance. She is well-developed. Genitourinary: Vulva normal. Cardiovascular: Rate and Rhythm: Normal rate and [...] nursing note reviewed. Exam conducted with a carpet layer helper present. Vitals: There is no height or weight on file to calculate BMI. BP: 124/82 Patient's last menstrual period was 04/22/2024. ASSESSMENT & PLAN ICD-10-CM 1. Third trimester Z34.93 POCT urinalysis dipstick manually resulted CULTURE, GROUP B STREP WITH SUSCEPTIBLITY CULTURE, GROUP B STREP WITH SUSCEPTIBLITY CANCELED: CULTURE, GROUP B STREP WITH SUSCEPTIBLITY 2. 35 weeks gestation of Z3A.35 Patient is doing well but has complaints of being tired and having maternal discomfort due to . Patient verbalized frequent movement and was instructed to perform kick counts three times per day. labor precautions were given, LARC consent was signed/declined, and GBS was obtained. Cervical check was performed and patient is 0cm dilated. Orders Placed This Encounter Procedures CULTURE, GROUP B STREP WITH SUSCEPTIBLITY POCT urinalysis dipstick manually resulted Follow Up: Patient is to return to office in 1 week for routine OB appointment Documented by Kacey Cedillo LPN on behalf of: Laurie Childs NP Reason for Appointment: Patient ID: Good Freeman [...] nursing note reviewed. Exam conducted with a carpet layer helper present. Vitals: There is no height or weight on file to calculate BMI. BP: 124/82 Patient's last menstrual period was 04/22/2024. ASSESSMENT & PLAN ICD-10-CM 1. Third trimester Z34.93 POCT urinalysis dipstick manually resulted CULTURE, GROUP B STREP WITH SUSCEPTIBLITY CULTURE, GROUP B STREP WITH SUSCEPTIBLITY CANCELED: CULTURE, GROUP B STREP WITH SUSCEPTIBLITY 2. 35 weeks gestation of Z3A.35 Return OB: Patient presents today for a routine obstetrics appointment. Patient is currently 35w5d . Patient states she is doing well but has complaints of being tired due to current . Patient has verbalizes frequent movement. labor precautions was discussed/given and patient was instructed to perform kick counts three times a day. Orders Placed This Encounter Procedures CULTURE, GROUP B STREP WITH SUSCEPTIBLITY POCT urinalysis dipstick manually resulted Follow Up: Patient is to return to office in 1 week for routine OB appointment. Documented by Laurie Childs NP on behalf of: Laurie Childs NP documented in this encounter [facility] 12-21-2024 History of Present illness Narrative Reason for [...] nursing note reviewed. Exam conducted with a carpet layer helper present. Vitals: There is no height or weight on file to calculate BMI. BP: 118/74 Patient's last menstrual period was 04/22/2024. ASSESSMENT & PLAN ICD-10-CM 1. Third trimester Z34.93 POCT urinalysis dipstick manually resulted 2. 35 weeks gestation of Z3A.35 Return OB: Patient presents today for a routine obstetrics appointment. Patient is currently 34w5d . Patient states she is doing well but has complaints of being tired due to current . Patient has verbalizes frequent movement. labor precautions was discussed/given and patient was instructed to perform kick counts three times a day. Orders Placed This Encounter Procedures POCT urinalysis dipstick manually resulted Follow Up: Patient is to return to office in 1 week for routine OB appointment. Documented by Kacey Cedillo LPN on behalf of: Lolita Crouch DO documented in this encounter [facility] 12-07-2024 History of Present illness Narrative Reason for [...] nursing note reviewed. Exam conducted with a carpet layer helper present. Vitals: There is no height or weight on file to calculate BMI. BP: 110/72 Patient's last menstrual period was 04/22/2024. ASSESSMENT & PLAN ICD-10-CM 1. 32 weeks gestation of Z3A.32 POCT urinalysis dipstick manually resulted 2. Third trimester Z34.93 POCT urinalysis dipstick manually resulted Return OB: Patient presents today for a routine obstetrics appointment. Patient is currently 32w5d . Patient states she is doing well but has complaints of being tired due to current . Patient has verbalizes frequent movement. labor precautions was discussed/given and patient was instructed to perform kick counts three times a day. Pt given growth ultrasound to have done in 4 weeks. Orders Placed This Encounter Procedures US OB follow up transabdominal approach POCT urinalysis dipstick manually resulted Follow Up: Patient is to return to office in 2 week for routine OB appointment. Documented by Kacey Cedillo LPN on behalf of: Lolita Crouch DO documented in this encounter [facility] 11-08-2024 History of Present illness Narrative Reason [...] nursing note reviewed. Exam conducted with a carpet layer helper present. Vitals: There is no height or [...] Lolita Crouch DO documented in this encounter [facility] 10-25-2024 History of Present illness Narrative Reason [...] of: ANSELMO Rogers documented in this encounter [facility] 09-27-2024 History of Present illness Narrative Reason [...] nursing note reviewed. Exam conducted with a carpet layer helper present. Vitals: There is no height or [...] Lolita Crouch DO documented in this encounter [facility] 08-29-2024 History of Present illness Narrative Reason [...] [facility] without difficulty [facility]. Orders Placed This Encounter Procedures US OB ANATOMY SINGLE W US OB CERVICAL LENGTH CHLAMYDIA TRACHOMATIS (GENITO/STI) Neisseria gonorrhea DNA probe, direct Alpha fetoprotein, maternal Follow Up: Patient is to return to our office in 4 weeks for routine OB appointment Documented by ANSELMO Rogers on behalf of: ANSELMO Rogers documented in this encounter [facility] 08-01-2024 History of Present illness Narrative Reason for Appointment: Patient ID: Good Fereman is a 19 y.o. female who presents [...] nursing note reviewed. Exam conducted with a carpet layer helper present. Vitals: There is no height or [...] or undercooked meat, and stay away from [facility]. Patient has been consulted regarding any further do's and don'ts of . Patient voiced understanding and all questions and concerns were answered. Orders Placed This Encounter Procedures POCT urinalysis dipstick manually resulted Follow Up: Patient is to return in 4 weeks for routine OB appointment. Documented by Kacey Cedillo LPN on behalf of: Lolita Crouch DO documented in this encounter [facility] 07-01-2024 History of Present illness Narrative Reason [...] or undercooked meat, and stay away from [facility]. Patient has also been advised to not [...] Lynnette Fitch MA documented in this encounter [facility] Evaluation note No assessment inform ation available [facility] Work Phone: Evaluation note Diagnosis Missed menses [...] [facility] Diagnosis 32 weeks gestation of Third trimester state, incidental Excessive growth affecting management of , antepartum, single or unspecified fetus [facility] Diagnosis Third trimester state, incidental 35 weeks gestation of [facility] Diagnosis Third trimester state, incidental 35 weeks gestation of [facility] Diagnosis Third trimester state, incidental 36 weeks gestation of [facility] Diagnosis Third trimester state, incidental 37 weeks gestation of [facility] Diagnosis 38 weeks gestation of Third trimester state, incidental documented in this encounter [facility] Summary [...] content) DATE CREATED AUTHOR 02/05/2021 [facility] pital DATE CREATED AUTHOR AUTHOR'S ORGANIZ ATION 09/01/2024 [facility] DATE CREATED AUTHOR AUTHOR'S ORGANIZ ATION 01/18/2025 [facility] EPIC Care Teams (unrecognized sec tion and content) Team Status: Active Member Role Status Dates NON STAFF Primary Care Provider Active Team Status: Inactive Member Role Status Dates Dolly M Elbert - [facility] , OVEN STRIPPER Attending Provider Active Start: April 26, 2024 [...] BE BASED ON THE PRIMARY CLINICAL RECORDS. [facility] [employer] provides no warranty or guarantee of the accuracy or completeness of information in this document.
[2025-01-24 06:10] LABS: Hematocrit 38.7 % (36.0-48.0); Hemoglobin 13.5 g/dL (12.0-16.0); Mean Corpuscular HGB Conc 34.9 g/dL (29.9-35.2); Mean Corpuscular Hemoglobin 32.1 pg (26.7-34.0); Mean Corpuscular Volume 92.1 fL (81.0-99.0); Mean Platelet Volume 10.9 fL (9.5-13.5); Platelet Count 207 10^3/uL (150-450); Red Cell Distribution Width 13.2 % (11.0-15.0); White Blood Count 9.6 10^3/uL (4.0-11.0)
[2025-01-24 06:19] LABS: Amphetamine Screen Urine NEGATIVE (NEGATIVE); Barbiturates Screen Urine NEGATIVE (NEGATIVE); Benzodiazepines Screen Urine NEGATIVE (NEGATIVE); Buprenorphine Screen Urine NEGATIVE (NEGATIVE); Cannabinoid Screen Urine NEGATIVE (NEGATIVE); Cocaine Screen Urine NEGATIVE (NEGATIVE); Methadone Screen Urine NEGATIVE (NEGATIVE); Methamphetamines Screen Urine NEGATIVE (NEGATIVE); Opiate Screen Urine NEGATIVE (NEGATIVE); Oxycodone Screen Urine NEGATIVE (NEGATIVE); Phencyclidine Screen Urine NEGATIVE (NEGATIVE); Tricyclic Antidepressant Urine NEGATIVE (NEGATIVE)
[2025-01-24] MEDS: 0.9 % SODIUM CHLORIDE 1,000 ML 125 ML IV ×2 (06:31→14:51)
[2025-01-24] MEDS: OXYTOCIN/0.9 % SODIUM CHLORIDE 10 UNITS/500 ML PLAST..BAG 6 UNIT IV (06:32)
[2025-01-24] MEDS: AMPICILLIN SODIUM 2,000 MG in 0.9 % SODIUM CHLORIDE 100 ML 200 MG IV (06:33)
[2025-01-24] MEDS: AMPICILLIN SODIUM 1,000 MG in 0.9 % SODIUM CHLORIDE 50 ML 100 MG IV ×2 (09:53→13:44)
[2025-01-24] MEDS: NALBUPHINE HCL 10 MG/ML AMPULE IV (13:44)
[2025-01-24] MEDS: 0.9 % SODIUM CHLORIDE 1,000 ML 999 ML IV (15:15)
[2025-01-24] MEDS: ROPIVACAINE HCL/PF 400 MG/200 ML PREMIX 8 MG EPIDURAL (15:15)
--- NOTE | 2025-01-24 17:01 | PM.OBPRCVD ---
Procedure Intrapartal events: None Induction method: per pitocin protocol Delivery augmentation: rupture of membranes Delivery monitor: external FHT and external uterine Route of delivery: Episiotomy Description: midline L&D Laceration Description: none Delivery repair: Vicryl Estimated blood loss (mL): 250 Anesthesia type: Epidural Disposition: floor Infant Delivery date: 01/24/25 Gender: male presentation: vertex Placental delivery description: Spontaneous cord description: 3 Vessels
[2025-01-24] MEDS: IBUPROFEN 600 MG TABLET PO (17:22)
[2025-01-24] MEDS: OXYTOCIN/0.9 % SODIUM CHLORIDE 20 UNITS/1,000 ML PLAST..BAG 125 UNIT IV (17:24)
[2025-01-24] MEDS: BENZOCAINE/MENTHOL 85 GRAM SPRAY BOTTLE 1 APPLIC TOPICAL (17:27)
[2025-01-24] MEDS: GLYCERIN/WITCH HAZEL PADS 1 PAD TOPICAL (17:28)
[2025-01-25] MEDS: IBUPROFEN 600 MG TABLET PO ×4 (00:38→22:28)
[2025-01-25 06:16] LABS: Basophils Percent Auto 0.2 % (0.2-2.0); Eosinophils Percent Auto 0.1 % (0.9-7.0); Hematocrit 34.3 % (36.0-48.0); Hemoglobin 11.9 g/dL (12.0-16.0); Immature Granulocytes Abs Auto 0.11 10^3/uL (0.00-0.03); Lymphocytes Absolute Auto 2.2 10^3/uL (1.2-3.8); Lymphocytes Percent Auto 19.5 % (20.5-60.0); Mean Corpuscular HGB Conc 34.7 g/dL (29.9-35.2); Mean Corpuscular Hemoglobin 32.2 pg (26.7-34.0); Mean Corpuscular Volume 92.7 fL (81.0-99.0); Mean Platelet Volume 10.3 fL (9.5-13.5); Monocytes Absolute Auto 0.7 10^3/uL (0.3-0.8); Monocytes Percent Auto 5.9 % (1.7-12.0); Neutrophils Absolute Auto 8.4 10^3/uL (1.4-6.5); Neutrophils Percent Auto 73.3 % (43.0-75.0); Platelet Count 184 10^3/uL (150-450); Red Cell Distribution Width 13.4 % (11.0-15.0); White Blood Count 11.5 10^3/uL (4.0-11.0)
--- NOTE | 2025-01-25 07:47 | PM.OBPN ---
OB - PN: Subj Subjective Patient comments: no complaints and pain well controlled status: doing well Exam Constitutional Vital Signs, click to edit/add: Last Vital Signs Temp 97.9 F 01/24/25 23:35 Pulse 84 01/24/25 23:27 Resp 16 01/24/25 23:35 BP 120/58 01/24/25 23:27 O2 Del Method Room Air 01/24/25 23:35 Documenting provider has reviewed patient's vital signs: yes Common normals: no apparent distress Respiratory Common normals: normal respiratory effort and clear to auscultation bilaterally Cardio Common normals: regular rate and regular rhythm GI Common normals: Normal to inspection, nondistended, normoactive bowel sounds present Extremity Common normals: no clubbing, cyanosis or edema and no calf tenderness Results Labs Labs: Short CBC 01/25/25 Range/Units 06:11 WBC 11.5 H (4.0-11.0) 10^3/uL Hgb 11.9 L (12.0-16.0) g/dL Hct 34.3 L (36.0-48.0) % Plt Count 184 (150-450) 10^3/uL OB - PN: A/P Plan - Vaginal Delivery day: 1 Plan: routine care Time Spent with Patient Time: Total time spent is greater than 50% in coordination of care (as documented) at patient's floor/unit and/or counseling patient: Total time spent with greater than 50% in coordination of care (as documented) at patient's floor/unit and/or counseling patient: less than 15 minutes
[2025-01-25] MEDS: DOCUSATE SODIUM 100 MG CAPSULE PO ×2 (08:20→22:28)
[2025-01-25 08:22] VITALS: BP 123/59; PULSE 83
[2025-01-25 08:28] VITALS: TEMP 36.7
[2025-01-25 16:13] VITALS: BP 128/80; PULSE 72
[2025-01-25 16:18] VITALS: TEMP 36.7
[2025-01-26 00:06] VITALS: TEMP 37
[2025-01-26 00:07] VITALS: BP 131/65; PULSE 73
[2025-01-26] MEDS: IBUPROFEN 600 MG TABLET PO (06:10)
[2025-01-26 08:55] VITALS: BP 133/62; PULSE 75; TEMP 36.9
[2025-01-26] MEDS: DOCUSATE SODIUM 100 MG CAPSULE PO (08:55)
--- NOTE | 2025-01-26 09:11 | P.OBPN_ITS ---
OB - PN: Subj Subjective Patient comments: no complaints [place] status: doing well Exam Constitutional Vital Signs, click to edit/add: Last Vital Signs Temp 98.6 F 01/26/25 00:06 Pulse 75 01/26/25 08:55 Resp 18 01/26/25 00:06 BP 133/62 01/26/25 08:55 O2 Del Method Room Air 01/26/25 00:06 Documenting provider has reviewed patient's vital signs: yes Common normals: no apparent distress General appearance: cooperative Orientation/consciousness: Yes awake, Yes oriented to person, Yes oriented to place and Yes oriented to time HENMT Common normals: normocephalic Eye Common normals: EOMs intact bilaterally Neck & C-Spine Common normals: full ROM, no lymphadenopathy, supple and no meningeal signs General: normal visual inspection Lymph Lymphatic: no lymphadenopathy noted Chest Common normals: inspection of chest normal Respiratory Common normals: normal respiratory effort Effort & inspection: able to speak in complete sentences Auscultation: clear to auscultation bilaterally Cardio Common normals: regular rate and regular rhythm Rate: regular rate Rhythm: regular rhythm GI Common normals: Normal to inspection, nondistended, normoactive bowel sounds present Inspection: normal to inspection Auscultation: normoactive bowel sounds Palpation: soft Common normals: no CVA tenderness Back & Pelvis Common normals: no CVA tenderness Extremity Common normals: normal to inspection, full ROM, normal capillary refill, no joint enlargement, no clubbing, cyanosis or edema, no calf tenderness and no pedal edema Neuro Common normals: oriented x3 Sensorium/orientation: awake, alert, oriented to person, oriented to place and oriented to time Psych Common normals: mental status grossly normal, thought process normal, cooperative, affect normal, speech normal, activity/motor behavior normal, denies hallucinations, denies homicidal ideation and denies suicidal ideation Attitude: calm Speech: normal speech Thought process: normal thought process OB - PN: A/P Time Spent with Patient Time: Total time spent is greater than 50% in coordination of care (as documented) at patient's floor/unit and/or counseling patient: Total time spent with greater than 50% in coordination of care (as documented) at patient's floor/unit and/or counseling patient: less than 15 minutes
--- NOTE | 2025-01-26 13:01 | PC.NURSE ---
Discussed breast care for non nursing mother. Handout given with discussion. No questions at this time.
== END 2025-01-26 14:30 | disposition home or self-care (01) | DRG 807 ==
PROVIDERS: Admitting Provider Obstetrics & Gynecology; Visit Provider Obstetrics & Gynecology
DX: O99.824 Streptococcus B carrier state complicating childbirth (principal); Z37.0 Single live birth; Z3A.39 39 weeks gestation of pregnancy; Z87.891 Personal history of nicotine dependence
CPT/HCPCS: 36415; 59050; 59410; 80307; 85025; 85027; 86850; 86900; 86901; J0290; J2300; J2795